=== PATIENT | female | born 1985 | race Caucasian/White ===

== ENCOUNTER 2019-10-29 22:16 | Emergency (ER) | payer OTHER ==
[~2019-10-29] VITALS: Ht 160 cm; Wt 64.0 kg
[2019-10-29 22:33] VITALS: Ht 160 cm; Wt 64.0 kg
[2019-10-29 23:29] VITALS: BP 130/89
== END 2019-10-29 23:29 | disposition home or self-care (01) ==
LOC: ED 22:16
DX: R00.2 Palpitations (principal); R42 Dizziness and giddiness